=== PATIENT | male | born 1990 | race Caucasian/White ===

== ENCOUNTER 2024-06-25 10:57 | Emergency (ER) | payer BC ==
[2024-06-25 11:04] VITALS: BP 125/53; PULSE 63; RESP 18; TEMP 98.5; BMI 10.8
== END 2024-06-25 12:23 | disposition home or self-care (01) ==
LOC: JERFT 10:57
DX: R09.81 Nasal congestion (principal); R05.9 Cough, unspecified; R51.9 Headache, unspecified; M79.10 Myalgia, unspecified site; J06.9 Acute upper respiratory infection, unspecified
CPT/HCPCS: 0241U-QW; 99283-25